=== PATIENT | female | born 1950 | race Caucasian/White ===

== ENCOUNTER → 2017-12-08 | Outpatient (CLI) | payer MEDICARE, OTHER ==
[~2017-12-08] MED LIST: BIOF1TAB PO; CALC1TAB87 PO; CARV12.52 PO; DOCU1CAP66 P-ARTICULR; LISI-519 PO; MIRA3350 PO; PANT40TA3 PO; VITA2000 PO; ZOLP10TA3 PO
[2017-12-08 10:31] LABS: AUTOMATED NEUTROPHIL # 4.7 TH/MM3 (1.8-7.7); BASOPHIL # 0.1 TH/MM3 (0-0.2); BASOPHIL % 1.4 % (0.0-2.0); EOSINOPHIL # 0.2 TH/MM3 (0-0.4); EOSINOPHIL % 3.3 % (0.0-4.0); HEMATOCRIT 37.8 % (35.0-46.0); HEMOGLOBIN 12.9 GM/DL (11.6-15.3); LYMPH % 19.7 % (9.0-44.0); LYMPHOCYTE # 1.4 TH/MM3 (1.0-4.8); MEAN CELL VOLUME 90.5 FL (80.0-100.0); MEAN CORPUSCULAR HGB CONC 34.2 % (32.0-36.0); MEAN PLATELET VOLUME 7.9 FL (7.0-11.0); MONO % 11.4 % (0.0-8.0); MONOCYTE # 0.8 TH/MM3 (0-0.9); NEUT % 64.2 % (16.0-70.0); PLATELET COUNT 327 TH/MM3 (150-450); RED BLOOD COUNT 4.18 MIL/MM3 (4.00-5.30); RED CELL DISTRIBUTION WIDTH 12.6 % (11.6-17.2); WHITE BLOOD COUNT 7.3 TH/MM3 (4.0-11.0)
[2017-12-08 10:45] LABS: BILIRUBIN, URINE NEG (NEG); BLOOD, URINE NEG (NEG); GLUCOSE,URINE NEG (NEG); KETONE, URINE NEG (NEG); NITRITE,URINE NEG (NEG); SQUAMOUS EPITHELIAL CELL URINE <1 /hpf (0-5); URINE COLOR YELLOW (YELLW/STRAW); URINE LEUKOCYTE ESTERASE NEG (NEG)
[2017-12-08 10:47] LABS: BICARBONATE 26.7 MEQ/L (21.0-32.0); CALCIUM 9.1 MG/DL (8.5-10.1); CREATININE 0.85 MG/DL (0.50-1.00)
--- NOTE | 2017-12-08 23:20 | EKG ---
Date Performed: 12/08/2017 Time Performed: 09:54:47 PTAGE: 67 years EKG: Sinus rhythm POSSIBLE RIGHT VENTRICULAR CONDUCTION DELAY BORDERLINE ECG NO PREVIOUS TRACING DOCTOR: Humberto Cotto Interpretating Date/Time 12/08/2017 23:19:26
== END ==
LOC: CPRE 09:33
PROVIDERS: ATTEND Orthopaedic Surgery Orthopaedic Surgery of the Spine
DX: Z01.810 Encounter for preprocedural cardiovascular examination (principal); Z01.812 Encounter for preprocedural laboratory examination; M17.12 Unilateral primary osteoarthritis, left knee; R94.31 Abnormal electrocardiogram [ECG] [EKG]
CPT/HCPCS: 36415; 80048; 81001; 85025; 93005

== ENCOUNTER 2017-12-28 10:39 | Inpatient (IN) | payer MEDICARE, OTHER ==
[~2017-12-28] VITALS: Ht 182.9 cm; Wt 106.0 kg
[2017-12-28] MEDS ORDERED: CHLORHEXIDINE GLUCONATE 2 % 1 PACK (2 CLOTHS) TOPICAL PRN (11:00)
[2017-12-28] MEDS ORDERED: LACTATED RINGER'S 1000 ML IV PRN (11:00)
[2017-12-28] MEDS ORDERED: SODIUM CHLORID 0.9% 500 ML IV PRN (11:00)
[2017-12-28] MEDS ORDERED: INSULIN HUMAN REGULAR 1,000 UNITS/10 ML VIAL SQ PRN (11:00)
[2017-12-28] MEDS ORDERED: METOPROLOL TARTRATE 25 MG TAB PO PRN (11:00)
[2017-12-28] MEDS ORDERED: POVIDONE IODINE 5% (ANTISEPSIS KIT) 4 APPLICATIONS EACH NARE PRN (11:00)
[2017-12-28] MEDS ORDERED: ceFAZolin 2 GM PREMIX 50 ML IV SCH (11:15)
[2017-12-28] MEDS ORDERED: CHLORHEXIDINE GLUCONATE 4% SOLN 120 ML BTL TOPICAL SCH (11:15)
[2017-12-28] MEDS ORDERED: ROPIVACAINE PERI-ARTICULAR INJECTION. P-ARTICULR SCH ×5 (11:15)
[2017-12-28 11:30] VITALS: PULSE 67
[2017-12-28] MEDS ORDERED: FAT EMULSION 20% INJ 0 ML ONE (11:45)
[2017-12-28] MEDS ORDERED: LIDOCAINE HCL 1% PF 5 ML SYRINGE OTHER ONE (12:00)
[2017-12-28] MEDS ORDERED: PHENYLEPH/NS 1000 MCG/10 ML SYR IV ONE (12:00)
[2017-12-28] MEDS ORDERED: ONDANSETRON HCL 4 MG/2 ML VIAL IV ONE (12:00)
[2017-12-28] MEDS ORDERED: PROPOFOL 200 MG/20 ML AMP IV ONE (12:00)
[2017-12-28] MEDS ORDERED: ROCURONIUM INJ 50 MG/5 ML SYRINGE IV PUSH ONE (12:00)
[2017-12-28] MEDS ORDERED: DEXAMETHASONE SOD PHOS 4 MG/ML VIAL IV ONE (12:00)
[2017-12-28] MEDS ORDERED: LACTATED RINGER'S 1000 ML INJ 1,000 ML IV ONE (12:00)
[2017-12-28] MEDS ORDERED: ROPIVACAINE 0.5% PF INJ 24.63 ML, KETOROLAC INJ 30 MG, EPINEPHrine (1:1000) INJ 0.5 MG,... P-ARTICULR SCH ×5 (12:00)
[2017-12-28] MEDS ORDERED: GLYCOPYRROLATE 1 MG/5 ML SYRINGE IV PUSH ONE (12:00)
[2017-12-28] MEDS ORDERED: NEOSTIGMINE 5 MG/5 ML SYRINGE IV PUSH ONE (12:00)
[2017-12-28] MEDS ORDERED: SODIUM CHLORIDE 0.9% 20 ML VIAL IV ONE (12:00)
[2017-12-28] MEDS ORDERED: ESMOLOL HCL 100 MG/10 ML VIAL IV ONE (12:00)
[2017-12-28] MEDS ORDERED: MIDAZOLAM HCL 2 MG/2 ML VIAL ONE (12:29)
[2017-12-28] MEDS ORDERED: APREPITANT 40 MG CAP ONE (12:29)
[2017-12-28] MEDS ORDERED: FAMOTIDINE 20 MG/2 ML VIAL ONE (12:29)
[2017-12-28] MEDS ORDERED: BUPIVACAINE HCL PF 0.5% 30 ML VIAL ONE (13:04)
[2017-12-28] MEDS: VANCOMYCIN 1 GM/200 ML PREMIX IV SCH ×2 (13:07→14:15)
[2017-12-28] MEDS ORDERED: ACETAMINOPHEN 1000 MG/100 ML 100 ML IV ONE (13:44)
[2017-12-28] MEDS ORDERED: fentaNYL CITRATE 250 MCG/5 ML AMP ONE (13:44)
[2017-12-28] MEDS ORDERED: GENTAMICIN SULFATE 80 MG/2 ML VIAL ONE (14:28)
[2017-12-28] MEDS ORDERED: FAMOTIDINE 20 MG/2 ML VIAL IV PUSH SCH (15:00)
[2017-12-28] MEDS ORDERED: APREPITANT 40 MG CAP PO SCH (15:00)
[2017-12-28] MEDS ORDERED: MIDAZOLAM HCL 2 MG/2 ML VIAL IV PUSH SCH (15:00)
[2017-12-28] MEDS ORDERED: BUPIVACAINE/EPINEPHRINE 0.25% PF 10 ML VIAL ONE (16:28)
[2017-12-28] MEDS ORDERED: WALKER WHEELS/F1 MIS (17:28)
[2017-12-28] MEDS ORDERED: CPMMACHINE (17:29)
--- NOTE | 2017-12-28 17:32 | HHI.FF ---
Face to Face Verification Diagnosis: (1) Osteoarthritis of left knee Physical Therapy Gait training, Transfer training, bed to chair Knee: Total knee, Protocol: Left, Full weight bearing Right LE Weight Bearing: WB as tolerated Left LE Weight Bearing: WB as tolerated Occupational Therapy Additional Instructions Aspirin 81 mg bid x 4 weeks dvt prop Nursing RN: 3 days/week x 2 weeks Nursing: Dressing changes (clean incision with alcohol and apply dry sterile dressing ) I have seen patient Nelda Delatorre on 12/28/17. My clinical findings support the need for the requested home health care services because: Deconditioned w/ increased weakness I certify that my clinical findings support that this patient is homebound because: Post-op weakness Unsteady gait/balance Joaquin Pandya MD Dec 28, 2017 17:32
[2017-12-28] MEDS ORDERED: LORazepam 2 MG/ML VIAL IV PRN (17:40)
[2017-12-28] MEDS ORDERED: LORazepam 2 MG/ML VIAL ONE (17:45)
[2017-12-28] MEDS ORDERED: *morphine SULFATE 4 MG/ML PERIprocedure ONLY ONE ×2 (17:45→19:25)
[2017-12-28] MEDS ORDERED: MORPHINE SULFATE 4 MG/ML INJ ONE (17:48)
[2017-12-28] MEDS ORDERED: *MEPERIDINE 25 MG INJ VIAL PERIprocedural Use ONLY ONE (17:50)
[2017-12-28] MEDS ORDERED: MORPHINE SULFATE 2 MG/ML INJ IV PUSH PRN (18:15)
[2017-12-28] MEDS ORDERED: ACETAMINOPHEN/HYDROcodone 325 MG/7.5 MG TAB PO PRN (18:15)
[2017-12-28] MEDS ORDERED: Post-op Orders (for Pharmacy) XX ONE (18:30)
[2017-12-28] MEDS ORDERED: ALUMINUM/MAGNESIUM/SIMETH 30 ML CUP PO PRN (18:30)
[2017-12-28] MEDS: LACTATED RINGER'S 1000 ML INJ 1,000 ML IV SCH (18:30)
--- NOTE | 2017-12-28 18:43 | RADRPT ---
EXAM DATE/TIME: 12/28/2017 18:04 [place] COMPARISON: No previous studies available for comparison. INDICATIONS : Post operative knee x-ray. MEDICAL HISTORY : None. SURGICAL HISTORY : None. ENCOUNTER: Initial ACUITY: 1 day PAIN SCORE: 10/10 LOCATION: Left Knee. FINDINGS: 2 images are performed status post total knee arthroplasty. Deep soft tissue gas is present. 2 surg ical drains are present in the suprapatellar region and multiple skin cuong. The osseous structure s are in normal alignment. The hardware appears intact. CONCLUSION: Expected postsurgical findings status post total knee arthroplasty. Sam Mckeon MD on December 28, 2017 at 18:41 Board Certified Radiologist. This report was verified electronically.
[2017-12-28] MEDS ORDERED: DO NOT ADM ANY ANTICOAGULANT DRUGS PRN (19:45)
[2017-12-28 20:00] VITALS: BP 124/66; PULSE 79; RESP 16; TEMP 97.7; O2SAT 97
[2017-12-28] MEDS ORDERED: ZOLPIDEM TARTRATE 10 MG TAB PO PRN (21:00)
[2017-12-28] MEDS: ASPIRIN EC 81 MG TABEC PO SCH (21:01)
[2017-12-28] MEDS: DOCUSATE SODIUM 100 MG CAP PO SCH (21:01)
[2017-12-28] MEDS: POLYETHYLENE GLYCOL 17 GM PKG PO SCH (21:02)
[2017-12-28] MEDS: ACETAMINOPHEN/HYDROcodone 325 MG/7.5 MG TAB PO PRN (21:07)
[2017-12-28] MEDS: ONDANSETRON HCL 4 MG/2 ML VIAL IVP PRN (21:21)
[2017-12-29] VITALS: BP 110/60; PULSE 65; RESP 16; TEMP 97.2; O2SAT 97
[2017-12-29 04:00] VITALS: BP 98/61; PULSE 104; RESP 16; TEMP 96.6; O2SAT 96
[2017-12-29 04:41] LABS: HEMATOCRIT 34.9 % (35.0-46.0); HEMOGLOBIN 11.9 GM/DL (11.6-15.3)
[2017-12-29] MEDS: ONDANSETRON HCL 4 MG/2 ML VIAL IVP PRN ×2 (04:51→19:34)
[2017-12-29] MEDS: ACETAMINOPHEN/HYDROcodone 325 MG/7.5 MG TAB PO PRN ×4 (04:52→19:34)
[2017-12-29] MEDS: LACTATED RINGER'S 1000 ML INJ 1,000 ML IV SCH ×2 (06:52→19:05)
--- NOTE | 2017-12-29 06:55 | PD.ORT.PN ---
Subjective Subjective Remarks pt complains of post operative left knee pain mild nausea, mild improvement from last night Objective Vitals Vital Signs Date Time Temp Pulse Resp B/P (MAP) Pulse Ox O2 Delivery O2 Flow Rate FiO2 12/29/17 00:00 97.2 65 16 110/60 (77) 97 12/28/17 20:00 97.7 79 16 124/66 (85) 97 12/28/17 19:30 65 12 134/66 (88) 97 Nasal Cannula 2 12/28/17 19:00 97.4 58 12 127/61 (83) 96 Nasal Cannula 2 12/28/17 18:45 72 14 120/58 (78) 95 Nasal Cannula 2 12/28/17 18:30 61 14 112/61 (78) 95 Nasal Cannula 2 12/28/17 18:15 73 14 121/66 (84) 95 Nasal Cannula 3 12/28/17 18:00 77 15 121/59 (79) 95 Nasal Cannula 3 12/28/17 17:45 94 30 165/77 (106) 97 Nasal Cannula 3 12/28/17 17:39 97.5 91 26 161/84 (109) 94 Nasal Cannula 3 12/28/17 15:41 70 125/79 12/28/17 11:30 67 12/28/17 11:30 98 Nasal Cannula 2 12/28/17 11:17 98.8 70 20 133/75 (94) 98 I/O 12/28/17 12/28/17 12/28/17 12/29/17 12/29/17 12/29/17 07:00 15:00 23:00 07:00 15:00 23:00 Intake Total 1600 ml 904 ml Output Total 260 ml 130 ml Balance 1340 ml 774 ml Intake IV Total 1600 ml 904 ml Output Drainage Total 210 ml 130 ml Estimated Blood Loss 50 ml Result Diagram: 12/29/17 0344 Imaging Last 24 hours Impressions Knee X-Ray 12/28/17 1710 Signed Impressions: Service Date/Time: December 18:04 - CONCLUSION: Expected postsurgical findings status post total knee arthroplasty. Sam Mckeon MD Objective Remarks seen by Dr. Joaquin Pandya left knee dressing dry and intact +NVI no calf tenderness Assessment & Plan Assessment and Plan POD # 1 s/p L TKA aspirin 81 mg bid x 4 wks dvt prop PT-WBAT hold CPM today possible d/c of drain later today anticipate d/c tomorrow with hhc if stable [place] 7.5 mg rx in chart Qiana Sparks Dec 29, 2017 06:55
[2017-12-29 08:00] VITALS: BP 108/57; PULSE 87; RESP 16; TEMP 97; O2SAT 100
[2017-12-29] MEDS: CARVEDILOL 12.5 MG TAB PO SCH (09:00)
[2017-12-29] MEDS: LISINOPRIL 5 MG TAB PO SCH (09:00)
[2017-12-29] MEDS: PANTOPRAZOLE SOD 40 MG DELAYED RELEASE TAB PO SCH (10:15)
[2017-12-29] MEDS: ASPIRIN EC 81 MG TABEC PO SCH ×2 (10:15→19:34)
[2017-12-29] MEDS ORDERED: FLUCONAZOLE 100 MG TAB PO ONE (11:00)
[2017-12-29] MEDS: diphenhydrAMINE HCL 25 MG CAP PO PRN (11:43)
[2017-12-29 12:00] VITALS: BP 133/70; PULSE 84; RESP 16; TEMP 96.3; O2SAT 99
--- NOTE | 2017-12-29 14:53 | MP ---
cc: Joaquin Pandya MD,Dana Rosenbaum MD DATE OF OPERATION: 12/28/2017 PREOPERATIVE DIAGNOSIS: Left knee severe osteoarthritis, genu valgus deformity. POSTOPERATIVE DIAGNOSIS: Left knee severe osteoarthritis, genu valgus deformity. PROCEDURE PERFORMED: Left total knee arthroplasty, cemented [employer] Vanguard. SURGEON: Joaquin Pandya MD ANESTHESIA: General, regional, adductor canal block, local intraarticular block. ESTIMATED BLOOD LOSS: 50 milliliters. TOURNIQUET TIME: 63 minutes at 250 millimeters of mercury. COMPLICATIONS: None. DESCRIPTION OF PROCEDURE: The patient was brought in the operating room and had satisfactory anesthesia by the Department of Anesthesia. The left lower extremity was prepped and draped in the usual standard manner. The extremity was exsanguinated by WONG wrap, elevation and tourniquet was inflated to 250 mmHg. Anterior exposure of the knee was made. A paramedian capsulotomy was performed. The patient found to have severe osteoarthritis, genus valgus, deformity of the bottom of the knee. The remaining portion of the medial and lateral meniscus were removed. The anterior cruciate ligament was removed. Posterior cruciate ligament was preserved. Prepatellar fat pad was excised. Using the [employer] Vanguard total knee arthroplasty system, guide was used for the distal femur. A 5 degree valgus cut to accept a 67.5 millimeter femoral component. The extramedullary guide was used for the proximal tibia cut to accept a 79 millimeter tibial prosthesis. A 10 millimeter insert. The patient had excellent balance with both flexion and extension. Undersurface of the patella was removed to accept a 34 millimeter 3-prong patella prosthesis. All trial components were removed. Preparation for cementing was made. Two packages of [place] bone cement by [employer] was used. First, the tibial component was cemented followed by the femoral component and then the patellar component. All excess bone cement was removed. A 10 x 79 deep dish polyethylene plastic was onto the tibial tray. The knee was injected with 100 milliliters of local anesthesia provided by the Department of Anesthesia. The knee was irrigated with 4000 milliliters of sterile saline and antibiotic solution. Tourniquet was deflated. All bleeding coagulated. The patella was found in groove well within patellofemoral compartment with no need for lateral release. Using no-thumbs technique, the patella was found in grove well within the patellofemoral compartment. The knee was closed over 2 Hemovac drains, hooked up to 8 inch Hemovac drains. The capsule and extensor mechanism were repaired using #2 TiCron suture, subcuticular areas with 0 Vicryl, 2-0 Vicryl. Skin was approximated with skin cuong. Sterile dressings were applied. The patient tolerated the procedure well an arrived in the recovery room in stable and satisfactory condition. MD NATHAN Conner/SANYA , 05:42 PM , 07:43 PM
[2017-12-29 16:00] VITALS: BP 140/63; PULSE 73; RESP 16; TEMP 98; O2SAT 100
[2017-12-29] MEDS: DOCUSATE SODIUM 100 MG CAP PO SCH (19:33)
[2017-12-29] MEDS: POLYETHYLENE GLYCOL 17 GM PKG PO SCH (19:33)
[2017-12-29 20:00] VITALS: BP 152/68; PULSE 96; RESP 19; TEMP 98.4; O2SAT 99
[2017-12-30] VITALS: BP 126/58; PULSE 94; RESP 18; TEMP 98.7; O2SAT 96
[2017-12-30] MEDS: diphenhydrAMINE HCL 25 MG CAP PO PRN (01:48)
[2017-12-30] MEDS: ACETAMINOPHEN/HYDROcodone 325 MG/7.5 MG TAB PO PRN ×4 (01:48→14:38)
--- NOTE | 2017-12-30 07:29 | PD.ORT.PN ---
Subjective Subjective Remarks Moderate left knee pain but slightly better today. Less nausea. No new leg pain. No CP or SOB. Questions about discharge. Objective Vitals Vital Signs Date Time Temp Pulse Resp B/P (MAP) Pulse Ox O2 Delivery O2 Flow Rate FiO2 12/30/17 00:00 98.7 94 18 126/58 (80) 96 12/29/17 20:00 98.4 96 19 152/68 (96) 99 12/29/17 16:00 98.0 73 16 140/63 (88) 100 12/29/17 12:00 96.3 84 16 133/70 (91) 99 12/29/17 08:00 97.0 87 16 108/57 (74) 100 I/O 12/29/17 12/29/17 12/29/17 12/30/17 12/30/17 12/30/17 07:00 15:00 23:00 07:00 15:00 23:00 Intake Total 904 ml 100 ml 600 ml 240 ml Output Total 130 ml 300 ml 100 ml Balance 774 ml 100 ml 300 ml 140 ml Intake Oral 600 ml 240 ml IV Total 904 ml 100 ml Output Drainage Total 130 ml 300 ml 100 ml # Voids 3 1 # Bowel Movements 0 Result Diagram: 12/29/17 0344 Imaging Last 24 hours Impressions Knee X-Ray 12/28/17 1710 Signed Impressions: Service Date/Time: December 18:04 - CONCLUSION: Expected postsurgical findings status post total knee arthroplasty. Sam Mckeon MD Objective Remarks Sitting up in bed NAd VSS LLE Knee dressing intact, some swelling and warmth, no erythema +motor at, Sens intact, Neg homans. seen by Dr. Joaquin Pandya Assessment & Plan Ortho Post Op Day #: 2 Problem List: Assessment and Plan POD #2 s/p L TKA Ortho stable today. Pain moderately controlled. PO [place] as needed. Motrin ok for breakthrough pain. aspirin 81 mg bid x 4 wks dvt postop Keep dressing clean and dry. PT-WBAT. CPM bid as tolerated. Ok to d/c home w [facility] today after PT. F/U in 2 weeks as scheduled w Dr. Ruel Pandya. Nissa Eubanks Dec 30, 2017 07:29
[2017-12-30 08:00] VITALS: BP 125/58; PULSE 86; RESP 20; TEMP 97.7; O2SAT 96
[2017-12-30] MEDS: LACTATED RINGER'S 1000 ML INJ 1,000 ML IV SCH (08:00)
[2017-12-30] MEDS: CARVEDILOL 12.5 MG TAB PO SCH (08:25)
[2017-12-30] MEDS: ASPIRIN EC 81 MG TABEC PO SCH (08:25)
[2017-12-30] MEDS: LISINOPRIL 5 MG TAB PO SCH (08:25)
[2017-12-30] MEDS: PANTOPRAZOLE SOD 40 MG DELAYED RELEASE TAB PO SCH (08:25)
[2017-12-30 12:00] VITALS: BP 131/60; PULSE 78; RESP 20; TEMP 97.9; O2SAT 96
== END 2017-12-30 15:46 | disposition home health service (06) | DRG 470 ==
LOC: HSDI 10:39 → N06B 20:37
PROVIDERS: ADMIT Orthopaedic Surgery Orthopaedic Surgery of the Spine; ATTEND Orthopaedic Surgery Orthopaedic Surgery of the Spine
PROC: 3E0T3BZ Introduction of Anesthetic Agent into Peripheral Nerves and Plexi, Percutaneous Approach (ICD-10-PCS; 2017-12-28)
PROC: 0SRD0J9 Replacement of Left Knee Joint with Synthetic Substitute, Cemented, Open Approach (ICD-10-PCS; principal; 2017-12-28 14:54)
DX: M17.12 Unilateral primary osteoarthritis, left knee (principal); G62.9 Polyneuropathy, unspecified; I10 Essential (primary) hypertension; M51.36 Other intervertebral disc degeneration, lumbar region; M81.0 Age-related osteoporosis without current pathological fracture; G47.30 Sleep apnea, unspecified; M21.062 Valgus deformity, not elsewhere classified, left knee; K21.9 Gastro-esophageal reflux disease without esophagitis; Z85.3 Personal history of malignant neoplasm of breast; Z79.82 Long term (current) use of aspirin
CPT/HCPCS: 36415; 73560; 85014; 85018; 86850; 86900; 86901; 86920; 94150; C1776; J0131; J0690; J0735; J1100; J1580; J1885; J2060; J2175; J2250; J2270; J2370; J2405; J2710; J2795; J3010; J3370; J7120; J8501; L1830